=== PATIENT | female | born 1975 | race Caucasian/White ===

== ENCOUNTER 2016-11-24 22:51 | Emergency (ER) | payer MEDICAID ==
[~2016-11-24] VITALS: Ht 157.5 cm; Wt 54.5 kg
[~2016-11-24 22:51] MED LIST: ALBU17AE16
[2016-11-24] MEDS ORDERED: ALBU8HFA4 IH (22:55)
[2016-11-24] MEDS ORDERED: IPRATROPIUM BROMIDE 0.5 MG/2.5 ML NEB SOLUTION NEB ONE ×2 (23:00)
[2016-11-24] MEDS ORDERED: ALBUTEROL SULFATE 2.5 MG/0.5 ML NEB SOLUTION NEB ONE ×2 (23:00)
[2016-11-25] MEDS ORDERED: PredniSONE 20 MG TABLET PO ONE (01:15)
[2016-11-25 01:35] VITALS: BP 120/80
== END 2016-11-25 01:42 | disposition home or self-care (01) ==
LOC: EMS 22:52
DX: J45.901 Unspecified asthma with (acute) exacerbation (principal)
CPT/HCPCS: 99283; J7512; J7613